=== PATIENT | female | born 1970 | race Caucasian/White ===

== ENCOUNTER 2018-10-12 10:51 | Emergency (ER) | payer BC ==
[~2018-10-12] VITALS: Ht 157.5 cm; Wt 83.9 kg
[2018-10-12] MEDS ORDERED: ONDANSETRON HCL/PF 4 MG/2 ML VIAL ONE (11:11)
[2018-10-12] MEDS ORDERED: KETOROLAC TROMETHAMINE 15 MG/ML VIAL ONE (11:11)
[2018-10-12] MEDS ORDERED: MORPHINE SULFATE INJ 2 MG/ML DISP.SYRIN ONE ×2 (11:11→13:52)
[2018-10-12 11:13] LABS: BASOPHILS % (AUTO) 0.6 % (0.0-2.0); EOSINOPHILS % (AUTO) 1.2 % (0.0-6.0); HEMATOCRIT 44 % (33-45); HEMOGLOBIN 15.1 g/dL (11.5-14.8); LYMPHOCYTES # (AUTO) 3.2 /CMM (0.8-4.8); LYMPHOCYTES % (AUTO) 41.1 % (20.0-44.0); MEAN CORPUSCULAR HGB CONC 34 g/dl (31.0-36.0); MEAN CORPUSCULAR VOLUME 93 fL (82-100); MONOCYTES # (AUTO) 0.3 /CMM (0.1-1.30); MONOCYTES % (AUTO) 4.3 % (2.0-12.0); NEUTROPHILS # (AUTO) 4.2 /CMM (1.8-8.9); NEUTROPHILS % (AUTO) 52.8 % (43.0-81.0); PLATELET COUNT (AUTO) 318 /CMM (150-450); RED BLOOD CELL COUNT(AUTO) 4.77 MIL/uL (4.0-5.2); WHITE BLOOD COUNT (AUTO) 7.9 K/uL (4.3-11.0)
[2018-10-12 11:20] LABS: CALCIUM, SERUM 9.8 mg/dL (8.5-10.1); CREATININE 1.1 mg/dL (0.6-1.3); POTASSIUM 3.8 mmol/L (3.5-5.1)
[2018-10-12 11:25] LABS: ALBUMIN 3.8 g/dL (3.4-5.0); BILIRUBIN,DIRECT 0.1 mg/dL (0.0-0.2); BILIRUBIN,TOTAL 0.5 mg/dL (0.2-1.0); TOTAL PROTEIN, SERUM 7.5 g/dL (6.4-8.2)
--- NOTE | 2018-10-12 11:25 | NUR ---
RLQ PAIN - ACUTE, NOTED 2 HOURS AGO; /, CONSTANT; NO ASS. SYMP. SHARP AND NON-RADIATING. RUBBING MAKES IT WORSE. PT IS AOX4, AMB, HYPERTENSIVE, RR EVEN AND UNLABORED. SKIN WARM, DRY, INTACT. DENIES SOB, SOME NAUSEA, -VOMIT. IV LINE ESTABLISHED AND MEDICATION ADMINISTERED PER PROTOCOL. IVF INFUSING AND PT MADE COMFORTABLE. AT BEDSIDE. SEEN BY JERMAINE BANG.
[2018-10-12 11:27] LABS: APPEARANCE,URINE Clear (CLEAR); BILIRUBIN,URINE Negative (NEGATIVE); BLOOD, URINE Small Ery/uL (NEGATIVE); COLOR,URINE Yellow (YELLOW); KETONES,URINE Negative (NEGATIVE); LEUKOCYTE ESTERASE ,URINE Negative (NEGATIVE); NITRITE, URINE Negative (NEGATIVE); PROTEIN,URINE Trace mg/dl (NEGATIVE); UGLUCOSE Negative (NEGATIVE); UROBILINOGEN,URINE 0.2 EU/dL (0.2)
[2018-10-12 11:28] LABS: BACTERIA,URINE None seen /HPF (None Seen); RBC,URINE 0-2 /HPF (0-2); SQUAMOUS EPITHELIAL CELL,UR Few /HPF (None Seen); WBC,URINE 0-2 /HPF (0-3)
[2018-10-12] MEDS ORDERED: MORPHINE SULFATE INJ 2 MG/ML DISP.SYRIN IV ONE ×2 (11:30→14:00)
[2018-10-12] MEDS ORDERED: ONDANSETRON HCL/PF 4 MG/2 ML VIAL IVP ONE (11:30)
[2018-10-12] MEDS ORDERED: IV NS 0.9% 1,000 ML BAG IV ONE (11:30)
[2018-10-12] MEDS ORDERED: KETOROLAC TROMETHAMINE INJ 30 MG/ML VIAL IV ONE (11:30)
--- NOTE | 2018-10-12 12:06 | NUR ---
PT FEELING BETTER AFTER MEDICATION. ABLE TO HAVE UNSTRAINED CONVERSATION. PROVIDED MORE BLANKETS. WILL CONT TO MONITOR.
--- NOTE | 2018-10-12 13:58 | NUR ---
RESEARCH AND DEVELOPMENT RESEARCHER AT BEDSIDE.
--- NOTE | 2018-10-12 14:36 | NUR ---
STAT US PELVIC ORDERED AT 1248. ON LUNCH BREAK FROM [phone]. FROM [phone] WITH OTHER ER PELVIC PATIENT . AT 1345 HAD TO RETURN TO U/S ROOM TO STERILE PELVIC PROBE INFORMED JERMAINE BANG. STERILIZATION COMPLETE AT 1355. EXAM START TIME 1403- END TIME 1428
--- NOTE | 2018-10-12 15:11 | NUR ---
IV removed. Catheter intact and site benign. Pressure and 4x4 applied to site. No bleeding noted. Patient discharged to home in stable condition. Written and verbal after care instructions given. Patient verbalizes understanding of instruction.
[2018-10-12 15:13] VITALS: BP 133/78
== END 2018-10-12 15:14 | disposition home or self-care (01) ==
LOC: ER 10:54
DX: R10.31 Right lower quadrant pain (principal); M54.9 Dorsalgia, unspecified; Z90.710 Acquired absence of both cervix and uterus; Z88.6 Allergy status to analgesic agent; Z88.5 Allergy status to narcotic agent
CPT/HCPCS: 36415; 74176; 76856; 80048; 80076; 81001; 83690; 84703; 85025; 96374; 96375; 96376; 99284; A4606; J1885; J2270 ×2; J2405; J7030; 81000-TC

== ENCOUNTER 2020-03-02 13:19 | Inpatient (IN) | payer BC ==
[~2020-03-02] VITALS: Ht 154.9 cm; Wt 81.6 kg
--- NOTE | 2020-03-02 13:32 | NUR ---
URINE SAMPLE SENT TO LAB
--- NOTE | 2020-03-02 13:37 | NUR ---
BIBS W/ FROM HOME TO ER BED 13. AAOX4. NOT IN RESP DISTRESS. AMBULATORY. CAME IN FOR UPPER ABDOMINAL PAIN SINCE 0600. PT RATES PAIN 8/10, CRAMPING AND THROBBING. PT STATES THAT THIS IS THE FIRST TIME SHE FELT THIS. URINE WAS COLLECTED AND SENT TO LAB. IV LINE OBTIANED ON R AC 18G, BLOOD DRAWN AND GIVEN TO OCCUPATIONAL THERAPY ASSISTANT. PT CHAPIN MONITOR.
[2020-03-02 13:41] LABS: BASOPHILS % (AUTO) 0.3 % (0.0-2.0); EOSINOPHILS % (AUTO) 0.4 % (0.0-6.0); HEMATOCRIT 43 % (33-45); HEMOGLOBIN 14.1 g/dL (11.5-14.8); LYMPHOCYTES # (AUTO) 1.9 /CMM (0.8-4.8); LYMPHOCYTES % (AUTO) 13.6 % (20.0-44.0); MEAN CORPUSCULAR HGB CONC 33 g/dl (31.0-36.0); MEAN CORPUSCULAR VOLUME 92 fL (82-100); MONOCYTES # (AUTO) 0.3 /CMM (0.1-1.30); MONOCYTES % (AUTO) 2.1 % (2.0-12.0); NEUTROPHILS # (AUTO) 11.8 /CMM (1.8-8.9); NEUTROPHILS % (AUTO) 83.6 % (43.0-81.0); PLATELET COUNT (AUTO) 297 /CMM (150-450); RED BLOOD CELL COUNT(AUTO) 4.63 MIL/uL (4.0-5.2); WHITE BLOOD COUNT (AUTO) 14.1 K/uL (4.3-11.0)
[2020-03-02 13:41] LABS: APPEARANCE,URINE Clear (CLEAR); BILIRUBIN,URINE Negative (NEGATIVE); BLOOD, URINE Moderate Ery/uL (NEGATIVE); COLOR,URINE Yellow (YELLOW); KETONES,URINE >=160 (NEGATIVE); LEUKOCYTE ESTERASE ,URINE Negative (NEGATIVE); NITRITE, URINE Negative (NEGATIVE); PH,URINE 6.5 (5.0-8.0); PROTEIN,URINE Trace mg/dl (NEGATIVE); UGLUCOSE Negative (NEGATIVE); UROBILINOGEN,URINE 0.2 EU/dL (0.2)
[2020-03-02 13:43] LABS: BACTERIA,URINE Few /HPF (None Seen); SQUAMOUS EPITHELIAL CELL,UR Few /HPF (None Seen)
[2020-03-02 13:50] LABS: CALCIUM, SERUM 9.9 mg/dL (8.5-10.1); POTASSIUM 3.7 mmol/L (3.5-5.1)
[2020-03-02 13:55] LABS: BILIRUBIN,DIRECT 0.1 mg/dL (0.0-0.2); BILIRUBIN,TOTAL 0.5 mg/dL (0.2-1.0); TOTAL PROTEIN, SERUM 7.6 g/dL (6.4-8.2)
[2020-03-02] MEDS ORDERED: MORPHINE SULFATE INJ 4 MG/ML DISP.SYRIN ONE (14:22)
[2020-03-02] MEDS ORDERED: KETOROLAC TROMETHAMINE INJ 30 MG/ML VIAL ONE (14:22)
[2020-03-02] MEDS ORDERED: ONDANSETRON HCL/PF 4 MG/2 ML VIAL ONE (14:22)
[2020-03-02] MEDS ORDERED: IV NS 0.9% 250 ML IV ONE (14:23)
[2020-03-02] MEDS ORDERED: IOHEXOL-300 100 ML VIAL IV ONE (14:23)
[2020-03-02] MEDS ORDERED: KETOROLAC TROMETHAMINE INJ 30 MG/ML VIAL IV ONE (14:30)
[2020-03-02] MEDS ORDERED: IV NS 0.9% 1,000 ML BAG IV ONE (14:30)
[2020-03-02] MEDS ORDERED: ONDANSETRON HCL/PF 4 MG/2 ML VIAL IVP ONE (14:30)
[2020-03-02] MEDS ORDERED: MORPHINE SULFATE INJ 2 MG/ML DISP.SYRIN IV ONE ×2 (14:30→20:30)
--- NOTE | 2020-03-02 14:38 | NUR ---
TO CT ON [place]
--- NOTE | 2020-03-02 14:54 | NUR ---
EKG AT BEDSIDE
--- NOTE | 2020-03-02 15:30 | NUR ---
DR RAMAN CALLED FOR SURGERY CONSULT.
--- NOTE | 2020-03-02 15:45 | NUR ---
Note shawna in ED - 03/02/20 at 1546 by LELE Patient discharged to home in stable condition. Written and verbal after care instructions given. Patient verbalizes understanding of instruction.IV removed. Catheter intact and site benign. Pressure and 4x4 applied to site. No bleeding noted. Pt ambulatory with a steady gait
--- NOTE | 2020-03-02 15:48 | NUR ---
PANEL ICT HELP DESK OFFICER PAGED
[2020-03-02] MEDS ORDERED: MELO-107 PO (15:53)
[2020-03-02] MEDS ORDERED: IV NS 0.9% 1,000 ML IV ONE (16:00)
--- NOTE | 2020-03-02 16:18 | NUR ---
COVID SWAB DONE AND SENT TO LAB
--- NOTE | 2020-03-02 16:45 | NUR ---
lab called elayne neg (-)
--- NOTE | 2020-03-02 16:50 | NUR ---
GOT BED 314
--- NOTE | 2020-03-02 16:54 | NUR ---
REPORT GIVEN TO ABHAY ISIDRO FOR ARY
[2020-03-02 17:00] VITALS: BP 131/77
--- NOTE | 2020-03-02 17:10 | NUR ---
PT TRANSPORTED TO UNIT ON [facility] WITH EMT AT BEDSIDE. NAD NOTED. PT IS IN STABLE CONDITION.
--- NOTE | 2020-03-02 17:30 | NUR ---
RN NOTE Patient arrived on unit, ambulated to bed and able to use bathroom by herself. Patient A/O x4, is not complaining of pain at this time. Patient is in no acute distress, lung sounds clear, breathing is even and unlabored saturating 98% on RA. Iv line in the RAC#18g is completing NS 1000ml from ER. Notified Dr. Sinclair for admitting orders: - D51/2 NS @ 80MLS/HR - ZOSYN 2.275 GM IV Q6 H - MORPHINE 2MG Q3H PRN Orders carried out. Will continue with admitting process. Patient remains stable at this time.
[2020-03-02 17:45] VITALS: BP 131/77
--- NOTE | 2020-03-02 17:55 | NUR ---
RN NOTE Patient stated that she experiences hallucinations with Dilauded. However she has NO reaction to toradol or morphine as it was given in ER. Pharmacy is aware.
[2020-03-02] MEDS ORDERED: PIPERACILLIN /TAZOBACTAM 3.375 G in IV D5W 50 ML IV ONE (18:00)
[2020-03-02] MEDS ORDERED: IV D5/0.45 NACL 1,000 ML IV PRN (18:00)
[2020-03-02] MEDS: MORPHINE SULFATE INJ 2 MG/ML DISP.SYRIN IV PRN ×2 (18:30→22:22)
--- NOTE | 2020-03-02 19:02 | NUR ---
RN CLOSING NOTE Patient is resting in bed, A/O x4, showing no signs of acute distress or SOB, stable on RA. IV line in the RAC #18g is clean and intact running D51/2 NS @ 80mls/hour. Yarely Castro is currently at the bedside discussing plan for surgery tomorrow in AM. Patient kept NPO. Bed is in lowest position, side rails x3 in upright position, call light is within reach, fall safety and aspiration precautions enforced. Will endorse to shift superintendent.
[2020-03-02] MEDS ORDERED: ONDANSETRON HCL/PF 4 MG/2 ML VIAL IVP PRN (19:30)
[2020-03-02] MEDS ORDERED: Z GUARD REMEDY 2 OZ OINT TP PRN (19:30)
[2020-03-02] MEDS ORDERED: PIPERACILLIN /TAZOBACTAM 3.375 G in IV D5W 50 ML IV SCH (20:00)
--- NOTE | 2020-03-02 20:00 | NUR ---
RN NOTES RECEIVED PT. AWAKE ON BED, A/OX4 , AMBULATORY, STILL COMPLAINING OF ABDOMINAL PAIN, EXPLAINED TO THE PATIENT THAT SHE JUST RECEIVED HER PAINJ MEDICATION BUT WILL CALL MD TO ASK FOR ANOTHER OPTION TO HELP HER FEEL MORE COMFORTABLE, CALL LIGHT WITHIN REACH, [id number], WILL CONTINUE TO MONITOR
[2020-03-02 20:09] VITALS: BP 137/72
--- NOTE | 2020-03-02 20:13 | NUR ---
RN NOTES CALL EDUARDO NATHAN DNP AND INFORMED HIM REGARDING PATIENT'S COMPLAINED , VENITA CLARK DNP ORDERED MORPHINE 2 MG IV X1 ORDER NOTED AND CARRIED OUT
--- NOTE | 2020-03-02 20:41 | NUR ---
RN NOTES COMPLAINED OF ABDOMINAL PAIN- MORPHINE 2 MG IV GIVEN ORDERED, V/S STABLE
[2020-03-02] MEDS: PIPERACILLIN /TAZOBACTAM 3.375 G in IV D5W 100 ML IV SCH (22:15)
--- NOTE | 2020-03-02 22:22 | NUR ---
RN NOTES COMPLAINED OF TERRIBLE ABDOMINAL PAIN- MORPHINE 2 MG IV GIVEN ORDERED, V/S STABLE
[2020-03-03] VITALS (11 sets, daily range): BP systolic 98–136; BP diastolic 58–88
[2020-03-03] MEDS: MORPHINE SULFATE INJ 4 MG/ML DISP.SYRIN IV PRN ×2 (01:50→06:27)
[2020-03-03] MEDS: PIPERACILLIN /TAZOBACTAM 3.375 G in IV D5W 100 ML IV SCH ×3 (06:16→22:12)
[2020-03-03 06:40] LABS: BASOPHILS % (AUTO) 0.1 % (0.0-2.0); EOSINOPHILS % (AUTO) 0.3 % (0.0-6.0); HEMATOCRIT 39 % (33-45); HEMOGLOBIN 12.6 g/dL (11.5-14.8); LYMPHOCYTES # (AUTO) 1.7 /CMM (0.8-4.8); LYMPHOCYTES % (AUTO) 12.1 % (20.0-44.0); MEAN CORPUSCULAR HGB CONC 33 g/dl (31.0-36.0); MEAN CORPUSCULAR VOLUME 93 fL (82-100); MONOCYTES # (AUTO) 0.7 /CMM (0.1-1.30); MONOCYTES % (AUTO) 5.2 % (2.0-12.0); NEUTROPHILS # (AUTO) 11.5 /CMM (1.8-8.9); NEUTROPHILS % (AUTO) 82.3 % (43.0-81.0); PLATELET COUNT (AUTO) 263 /CMM (150-450); RED BLOOD CELL COUNT(AUTO) 4.17 MIL/uL (4.0-5.2); WHITE BLOOD COUNT (AUTO) 13.9 K/uL (4.3-11.0)
--- NOTE | 2020-03-03 06:50 | NUR ---
RN NOTES pt. complained of feeling nauseous- zofran 4mg iv given as ordered, and pt, complained of abdominal pain but pt. only wants to take 2mg IV instead of 4 mg iv. per pt, she wants to speak with the anesthesiologist and doesn't want to be sleepy that's why she didn't want to take 4 mg IV, morning care rendered, [id number], pt. needs attended
[2020-03-03 07:04] LABS: ALBUMIN 3.1 g/dL (3.4-5.0); BILIRUBIN,TOTAL 0.7 mg/dL (0.2-1.0); CALCIUM, SERUM 8.8 mg/dL (8.5-10.1); CREATININE 0.9 mg/dL (0.6-1.3); MAGNESIUM 1.9 mg/dL (1.8-2.4); PHOSPHORUS 3.1 mg/dL (2.5-4.9); POTASSIUM 3.6 mmol/L (3.5-5.1); TOTAL PROTEIN, SERUM 6.2 g/dL (6.4-8.2)
--- NOTE | 2020-03-03 07:15 | NUR ---
RN OPENING NOTES RECEIVED PT IN BED. AWAKE ALERT AND ORIENTED X4. AWAITING FOR APPENDECTOMY. NO CARDIAC OR RESPIRATORY DISTRESS NOTED. NO SOB NOTED. SATURATING WELL ON ROOM AIR. PT IS AWAITING FOR HER SCHEDULED APPENDECTOMY. PT STATES THAT SHE HAS NPO SINCE MIDNIGHT LAST NIGHT. IV ACCESS NOTED ON R AC G18. WITH D51/2 NS RUNNING AT 80ML/HR. IV ACCESS INTACT AND PATENT AND FLUSHING WELL. NO S/S OF INFECTION OR INFILTRATION NOTED. SAFETY PRECAUTIONS IN PLACE. BED LOCKED AND IN LOW POSITION. SIDE RAILS UP X2. BED ALARM ON. CALL LIGHT WITHIN REACH. WILL CONT TO MONITOR.
--- NOTE | 2020-03-03 08:00 | NUR ---
SURGERY CHECKLIST SURGERY CHECKLIST DONE AND COMPLETED. CONSENTS SIGNED AND PLACED IN THE CHART.
[2020-03-03] MEDS ORDERED: ANESTHESIA TRAY IN PYXIS 1 EA TRAY MC ONE (08:31)
[2020-03-03] MEDS ORDERED: BUPIVACAINE MPF 0.5% W/EPI INJ 30 ML VIAL ONE (08:31)
[2020-03-03] MEDS ORDERED: LIDOCAINE 1% INJ 50 ML MDV IJ ONE (08:31)
[2020-03-03] MEDS ORDERED: FLUMAZENIL 0.5 MG VIAL IV ONE (09:00)
[2020-03-03] MEDS ORDERED: SCOPOLAMINE HBR 1 EA PATCH.TD72 TD ONE (09:00)
--- NOTE | 2020-03-03 09:00 | NUR ---
SURGERY PT LEFT FOR SURGERY. ENDORSED TO OR NURSES. PT WILL BE HAVING A LAPAROSCOPIC APPENDECTOMY.
--- NOTE | 2020-03-03 11:45 | NUR ---
BACK FROM SURGERY PT CAME BACK FROM SURGERY. S/P LAPAROSCOPIC APPENDECTOMY. PT STILL APPEARS TO BE DROWSY. VITAL SIGNS CHECKED NOTED AT T- 97.1, P- 81, RR- 18, BP-136/88, O2 SAT- 100% ON ROOM AIR. ALL POST OP ORDERS NOTED AND CARRIED OUT. ALSO ORDERED FOOD FOR THE PT, PT WILL BE HAVING CLEAR LIQUIDS FOR LUNCH THEN BACK TO REGULAR DIET FOR DINNER TONIGHT.
--- NOTE | 2020-03-03 13:00 | NUR ---
LUNCH/VOIDED PT ASSISTED TO THE BATHROOM AND VOIDED. PT APPEARS TO BE MORE AWAKE NOW. SHE ALSO ATE 75% OF HER CLEAR LIQUID LUNCH. VITAL SIGNS STABLE.
--- NOTE | 2020-03-03 13:45 | NUR ---
AMBULATED PT AMBULATED IN THE HALLWAYS, ASSISTED PT ON STAND BY ASSIST DURING AMBULATION. PT DID ABOUT 5 LAPS AROUND THE UNIT.
[2020-03-03] MEDS ORDERED: MIDAZOLAM HCL 2 MG/2ML VIAL IV ONE (14:49)
--- NOTE | 2020-03-03 16:25 | NUR ---
ENDORSED TO RN SBAR DONE WITH MICHELLE BLANK. MICHELLE WILL BE ASSUMING CARE FOR THIS PT. REPORT GIVEN. PT IN STABLE CONDITION. CURRENTLY SLEEPING BUT AROUSABLE.
[2020-03-03] MEDS: ACETAMINOPHEN 325 MG TABLET PO PRN (17:25)
--- NOTE | 2020-03-03 19:14 | NUR ---
MS/RN CLOSING NOTES PATIENT IS ON BED ALERT AND ORIENTED X4. PATIENT DENIES PAIN AT THIS TIME. NO APPARENT RESPIRATORY DISTRESS NOTED. IV ACCESS AT RIGHT AC # 20G WITH IV FLUID OF NS 1 L AT 75ML/HR ON AND INFUSING WELL. SEEN AND EXAMINED BY MD WITH ORDERS MADE AND CARRIED OUT. ALL DUE MEDICATION WAS GIVEN. CHECKED AND TURNED PATIENT EVERY 2 HOURS. SAFETY PRECAUTIONS IN PLACED. BED IN LOWEST POSITION AND LOCKED, SIDE RAILS UP X2. CALL LIGHT WITH IN REACH. # 6 IS INFUSED AND # 7 BAG STILL ON GOING FOR CONTINUOUS BLADDER IRRIGATION. INPUT 3000 ML INPUT OUTPUT 2800 ML, WILL ENDORSED TO PRESSURE SUPERVISOR FOR ARY. Addendum: 03/03/20 at 1921 by MICHELLE HENNING RN ERROR
--- NOTE | 2020-03-03 19:21 | NUR ---
MS/RN CLOSING NOTES PATIENT IS OUT OF BED WALKING THE HALLWAY ALERT AND ORIENTED X4. PATIENT DENIES PAIN AT THIS TIME. NO APPARENT RESPIRATORY DISTRESS NOTED. SAFETY PRECAUTIONS IN PLACED. BED IN LOWEST POSITION AND LOCKED, SIDE RAILS UP X2. CALL LIGHT WITHIN REACH. WILL ENDORSED TO RHEOSTAT ASSEMBLER FOR ARY.
--- NOTE | 2020-03-03 19:44 | NUR ---
MS RN NOTES RECEIVED PATIENT, ALERT ORIENTED X4, STATUS POST APPENDECTOMY, PATIENT IS AMBULATORY, TOLERATING DISCOMFORT WELL, ABLE TO MANAGE PAIN AND DISCOMFORT THROUGH NON PHARMACOLOGICAL INTERVENTION. SAFETY MEASURES IN PLACE, NON SKID FOOTWEAR NOTED, DENIES NAUSEA AND OR VOMITING. ALL NEEDS ANTICIPATED,WILL CONTINUE TO MONITOR ACCORDINGLY.
[2020-03-04] MEDS: PIPERACILLIN /TAZOBACTAM 3.375 G in IV D5W 100 ML IV SCH (05:53)
--- NOTE | 2020-03-04 06:52 | NUR ---
MS RN NOTES ALL NEEDS ATTENDED AND MET, ABLE TO REST AND SLEPT AT INTERVALS. DENIES PAIN WITH MANAGEABLE DISCOMFORT. SAFETY MEASURES IN PLACE, WILL ENDORSE TO AM NURSE FOR CONTINUITY OF CARE.
[2020-03-04 07:36] LABS: BASOPHILS % (AUTO) 0.3 % (0.0-2.0); EOSINOPHILS % (AUTO) 0.4 % (0.0-6.0); HEMATOCRIT 34 % (33-45); HEMOGLOBIN 11.2 g/dL (11.5-14.8); LYMPHOCYTES # (AUTO) 2.8 /CMM (0.8-4.8); LYMPHOCYTES % (AUTO) 29.8 % (20.0-44.0); MEAN CORPUSCULAR HGB CONC 33 g/dl (31.0-36.0); MEAN CORPUSCULAR VOLUME 93 fL (82-100); MONOCYTES # (AUTO) 0.4 /CMM (0.1-1.30); MONOCYTES % (AUTO) 4.8 % (2.0-12.0); NEUTROPHILS % (AUTO) 64.7 % (43.0-81.0); PLATELET COUNT (AUTO) 239 /CMM (150-450); RED BLOOD CELL COUNT(AUTO) 3.65 MIL/uL (4.0-5.2); WHITE BLOOD COUNT (AUTO) 9.2 K/uL (4.3-11.0)
--- NOTE | 2020-03-04 07:54 | NUR ---
PATIENT IS A/O X 4 ALERT AND ORIENTED. WITH NO SIGNS OF DISTRESS IN ROOM AIR. IV ON THE R AC #18G SL INTACT. DENIES ANY PAIN AND NO DISCOMFORT AT THIS MOMENT. SAFETY MEASURES ARE BEING APPLIED, BED IS IN LOW POSITION AND LOCKED, SIDE RAILS UP X 2 FOR SAFETY. CALL LIGHT WITHIN REACH. WILL CONTINUE TO MONITOR.
[2020-03-04 08:32] VITALS: BP 121/72
[2020-03-04] MEDS: ACETAMINOPHEN 325 MG TABLET PO PRN (08:40)
[2020-03-04 08:48] LABS: CALCIUM, SERUM 9.1 mg/dL (8.5-10.1); CREATININE 0.9 mg/dL (0.6-1.3); PHOSPHORUS 2.5 mg/dL (2.5-4.9); POTASSIUM 3.8 mmol/L (3.5-5.1)
[2020-03-04] MEDS ORDERED: METR500T PO (11:15)
[2020-03-04] MEDS ORDERED: CIPR-262 PO (11:15)
--- NOTE | 2020-03-04 14:51 | NUR ---
PATIENT VITAL SIGNS ARE STABLE, PATIENT HAS NO COMPLAINTS OF PAIN AND NO SIGNS OF SOB AND NO SIGNS OF DISTRESS. PATIENT DISCHARGE INSTRUCTIONS WERE EXPLAINED VERBALLY, TO CONTINUE WITH PRESCRIBED MEDICATIONS, FOLLOW UP WITH PRIMARY CARE PHYSICIAN AND RETURN TO THE ER IN CASE OF AN EMERGENCY, SHE VERBALLY REPEATED BACK THE TEACHING INSTRUCTIONS. IV R AC WAS REMOVED WITH NO SIGNS OF BLEEDING AND COVERED. BELONGING LIST WAS COMPLETED AND SIGNED. AMBULATED WITH NORMAL GAIT OUT TO THE LOBBY ACCOMPANIED BY ME AND GOT PICKED UP BY .
== END 2020-03-04 14:50 | disposition home or self-care (01) | DRG 342 ==
LOC: ER 13:27 → MED 16:58
PROVIDERS: ADMIT Nurse Practitioner Acute Care; ATTEND Nurse Practitioner Acute Care
PROC: 0DTJ4ZZ Resection of Appendix, Percutaneous Endoscopic Approach (ICD-10-PCS; principal; 2020-03-03)
DX: K35.80 Unspecified acute appendicitis (principal); E87.1 Hypo-osmolality and hyponatremia; D68.69 Other thrombophilia; K92.2 Gastrointestinal hemorrhage, unspecified; F41.9 Anxiety disorder, unspecified; K57.90 Diverticulosis of intestine, part unspecified, without perforation or abscess without bleeding; D72.829 Elevated white blood cell count, unspecified; E86.9 Volume depletion, unspecified; E66.9 Obesity, unspecified; Z68.34 Body mass index [BMI] 34.0-34.9, adult; Z90.710 Acquired absence of both cervix and uterus
CPT/HCPCS: 36415; 71045-TC; 80048-TC; 80053-TC; 80061-TC; 80076-TC; 81000-TC; 82962-TC; 83690-TC; 83735-TC; 83880; 84100-TC; 84702-TC; 85025-TC; 85610-TC; 87081-TC; 88304-TC; A6403; G0378; J0690; J1100; J1885; J2250; J2270; J2405; J2543; J2704; J3490; J7030; J7050; J7060; Q9967

== ENCOUNTER 2020-03-06 09:41 | Emergency (ER) | payer BC ==
[~2020-03-06] VITALS: Ht 154.9 cm; Wt 72.6 kg
[~2020-03-06 09:41] MED LIST: CIPR-262 PO; MELO-107 PO; METR500T PO
--- NOTE | 2020-03-06 09:50 | NUR ---
Patient is here for DIARRHEA/NAUSEA, S/P APPENDECTOMY 3 DAYS AGO. RR is even and unlabored with NAD noted. Skin is warm and dry. Awaiting ER MD for eval.
[2020-03-06 10:16] LABS: BASOPHILS % (AUTO) 0.4 % (0.0-2.0); EOSINOPHILS % (AUTO) 2.1 % (0.0-6.0); HEMATOCRIT 40 % (33-45); HEMOGLOBIN 13.2 g/dL (11.5-14.8); LYMPHOCYTES # (AUTO) 2.4 /CMM (0.8-4.8); MEAN CORPUSCULAR HGB CONC 34 g/dl (31.0-36.0); MEAN CORPUSCULAR VOLUME 93 fL (82-100); MONOCYTES # (AUTO) 0.3 /CMM (0.1-1.30); MONOCYTES % (AUTO) 4.9 % (2.0-12.0); NEUTROPHILS # (AUTO) 4.1 /CMM (1.8-8.9); NEUTROPHILS % (AUTO) 58.6 % (43.0-81.0); PLATELET COUNT (AUTO) 278 /CMM (150-450); RED BLOOD CELL COUNT(AUTO) 4.27 MIL/uL (4.0-5.2); WHITE BLOOD COUNT (AUTO) 7.1 K/uL (4.3-11.0)
[2020-03-06] MEDS ORDERED: ONDANSETRON HCL/PF 4 MG/2 ML VIAL ONE (10:20)
[2020-03-06 10:22] LABS: CALCIUM, SERUM 9.3 mg/dL (8.5-10.1); CREATININE 0.9 mg/dL (0.6-1.3); POTASSIUM 3.5 mmol/L (3.5-5.1)
--- NOTE | 2020-03-06 10:23 | NUR ---
urine collected and sent to lab
[2020-03-06 10:27] LABS: ALBUMIN 3.2 g/dL (3.4-5.0); BILIRUBIN,DIRECT 0.1 mg/dL (0.0-0.2); BILIRUBIN,TOTAL 0.3 mg/dL (0.2-1.0); TOTAL PROTEIN, SERUM 6.7 g/dL (6.4-8.2)
[2020-03-06] MEDS ORDERED: ONDANSETRON HCL/PF 4 MG/2 ML VIAL IVP ONE (10:30)
[2020-03-06] MEDS ORDERED: IV NS 0.9% 1,000 ML BAG IV ONE (10:30)
[2020-03-06 10:37] LABS: APPEARANCE,URINE Clear (CLEAR); BILIRUBIN,URINE Negative (NEGATIVE); BLOOD, URINE Trace-lysed Ery/uL (NEGATIVE); COLOR,URINE Yellow (YELLOW); KETONES,URINE Negative (NEGATIVE); LEUKOCYTE ESTERASE ,URINE Negative (NEGATIVE); NITRITE, URINE Negative (NEGATIVE); PH,URINE 6.5 (5.0-8.0); PROTEIN,URINE Negative (NEGATIVE); UGLUCOSE Negative (NEGATIVE); UROBILINOGEN,URINE 0.2 EU/dL (0.2)
[2020-03-06 10:38] LABS: BACTERIA,URINE None seen /HPF (None Seen); SQUAMOUS EPITHELIAL CELL,UR Rare /HPF (None Seen); WBC,URINE 0-2 /HPF (0-3)
[2020-03-06 11:23] VITALS: BP 126/81
--- NOTE | 2020-03-06 11:24 | NUR ---
Patient discharged to home in stable condition. Written and verbal after care instructions given. Patient verbalizes understanding of instruction.IV removed. Catheter intact and site benign. Pressure and 4x4 applied to site. No bleeding noted.
== END 2020-03-06 11:24 | disposition home or self-care (01) ==
LOC: ER 09:43
DX: G89.18 Other acute postprocedural pain (principal); R19.7 Diarrhea, unspecified; Z98.890 Other specified postprocedural states; Z91.040 Latex allergy status; Z88.6 Allergy status to analgesic agent; Z88.8 Allergy status to other drugs, medicaments and biological substances; Z79.899 Other long term (current) drug therapy
CPT/HCPCS: 36415; 74176; 80048; 80076; 81001; 83690; 85025; 96361; 96374; 99284; J2405; J7030; 81000-TC

== ENCOUNTER 2024-05-03 10:22 | Emergency (ER) | payer BC, OTHER ==
[~2024-05-03] VITALS: Ht 157.5 cm; Wt 85.7 kg
[2024-05-03 11:05] VITALS: BP 141/94; TEMP 98.7; O2SAT 97
== END 2024-05-03 11:05 | disposition home or self-care (01) ==
LOC: ER 10:30
DX: J32.9 Chronic sinusitis, unspecified (principal); Z90.710 Acquired absence of both cervix and uterus; Z91.040 Latex allergy status; Z88.5 Allergy status to narcotic agent; Z88.7 Allergy status to serum and vaccine